=== PATIENT | female | born 1970 | race Caucasian/White ===

== ENCOUNTER 2016-09-27 20:38 | Emergency (ER) | payer OTHER ==
--- NOTE | ~2016-09-27 | CR282 ---
[facility] A Service of [facility] & [facility] RADIOLOGY TEXT RESULTS PATIENT: SAM KHOURY LOCATION: CFTX : [id number] UNIT #: [id number] AGE: [address]: Anna Marie Hawkins APRN SEX: F ORDER DR: [id number] [facility] [address] [place], [place] [address] [id number] MR#: [id number] Acc #: [id number] NAME: SAM KHOURY : 1970 SEX: F STUDY DATE/TIME: 09/27/2016 20:30 UNIT: [facility] ROOM: STUDY DESCRIPTION: CR Wrist Min 3 View Rt Attending Physician: Anna Marie Hawkins A.P.R.N. Ordering Physician: Anna Marie Hawkins A.P.R.N. Primary Care Physician: [facility] MEDICAL IMAGING REPORT This report is preliminary unless electronic signature is present EXAM Right wrist 3 views, 09/27/2016 HISTORY Right wrist pain for 3 years with no known trauma. FINDINGS 3 views of the right wrist demonstrate no fracture. There is degenerative narrowing of the radiocarpal joint. The bones are normally mineralized. There is no soft tissue abnormality. Abnormality. 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 Otherwise negative right wrist. No evidence of fracture. Dictated by... Jay Holloway M.D. THIS IS AN ELECTRONICALLY VERIFIED REPORT Jay Holloway M.D. at 09/28/2016 2:18 PM BETSEY/bridger TD: 09/28/2016 04:47 JOB #: [id number] MEDICAL IMAGING REPORT COPY
[~2016-09-27 20:38] MED LIST: FLEXERIL10 MG PO; MEDROL4 MG/DOSE- PO; NO MEDICATIONS
== END 2016-09-27 21:15 | disposition home or self-care (01) ==
LOC: CFTX 20:38
DX: H66.92 Otitis media, unspecified, left ear (principal); M25.531 Pain in right wrist; M79.644 Pain in right finger(s); F17.210 Nicotine dependence, cigarettes, uncomplicated
CPT/HCPCS: 29125; 73110; 96372; 99283; J1885